=== PATIENT | female | born 1950 | race Caucasian/White ===

== ENCOUNTER 2016-03-12 13:47 | Day surgery (SDC) | payer MEDICARE ==
[~2016-03-12 13:47] MED LIST: DIPHENHYDRAMINE HCL 50 MG/ML VIAL ONE; EPINEPHRINE INJ 1 MG/10 ML DISP.SYRIN ONE; FLUMAZENIL INJ 0.5 MG/5 ML VIAL IV ONE; GLUCAGON,HUMAN RECOMB 1 MG INJ ONE; NALOXONE HCL INJ/PF 0.4 MG/1 ML SDV ONE; ONDANSETRON HCL INJ/PF 4 MG/2 ML SDV ONE; PROMETHAZINE HCL INJ 25 MG/1 ML VIAL ONE
[2016-03-12] MEDS: MIDAZOLAM 2 MG/2 ML INJ ONE ×2 (14:17→14:22)
[2016-03-12] MEDS: FENTANYL CITRATE INJ/PF 100 MCG/2 ML AMPUL ONE ×3 (14:19→14:24)
--- NOTE | 2016-03-12 14:30 | Operative Report ---
Operative Report DATE OF SURGERY: 03/12/16 Operative Report: The risks benefits and alternatives of the procedure explained to the patient in detail and informed consent is obtained that GIF Olympus video scope was inserted into the patient's mouth and hypopharynx the esophagus is identified intubated and insufflated the scope was then advanced through the esophagus stomach and duodenum retroflexion maneuver is done the esophagus stomach and first and second portions of the duodenum examined PREOPERATIVE DIAGNOSIS: Dysphagia POSTOPERATIVE DIAGNOSIS: Hiatal hernia. Schatzki's ring. Gastritis. Esophagitis rule out Augustine's esophagus OPERATION: EGD with biopsy SURGEON: WILIAN FOWLER ANESTHESIA: Moderate Sedation - 4 mg of Versed, 100 g of fentanyl. TISSUE REMOVED OR ALTERED: Gastric specimens status post biopsy rule out Helicobacter pylori. Allergies specimens taken to rule out Augustine's esophagus and to break the Schatzki's ring COMPLICATIONS: None. ESTIMATED BLOOD LOSS: none. INTRAOPERATIVE FINDINGS: As noted above. First and second portions of the duodenum normal PROCEDURE: Patient tolerated the procedure well. No immediate postprocedure complications are noted. Patient is discharged in good condition. Discharge date 03/12/2016. Discharge diet: Regular. Discharge activity: Regular. Patient does have a 2-3 week follow-up to discuss findings. We'll await on biopsies. Patient is instructed to go to emergency room or call the office should there be any further problems or questions.
[2016-03-12 15:39] VITALS: BP 121/78
== END 2016-03-12 15:35 | disposition home or self-care (01) ==
LOC: END 13:47
PROVIDERS: ATTEND Internal Medicine Gastroenterology
PROC: 0DB48ZX Excision of Esophagogastric Junction, Via Natural or Artificial Opening Endoscopic, Diagnostic (ICD-10-PCS; 2016-03-12)
PROC: 0DB68ZX Excision of Stomach, Via Natural or Artificial Opening Endoscopic, Diagnostic (ICD-10-PCS; principal; 2016-03-12 14:00)
DX: K22.2 Esophageal obstruction (principal); K44.9 Diaphragmatic hernia without obstruction or gangrene; K29.50 Unspecified chronic gastritis without bleeding; K20.9 Esophagitis, unspecified; I10 Essential (primary) hypertension; Z72.0 Tobacco use; Z79.899 Other long term (current) drug therapy
CPT/HCPCS: 43239; 88342 ×2; 88305 ×2; 88312 ×2; J2250; J0171; J3010; J1200; J1610; J2310; J2405; J2550; J3490

== ENCOUNTER 2016-06-22 08:50 | Inpatient (IN) | payer MEDICARE ==
--- NOTE | 2016-06-22 08:56 | ER Document Report ---
ED General - General Mode of Arrival: Medic Information source: Relative - Daughter, Emergency Med Personnel TRAVEL OUTSIDE OF THE [place] IN LAST 30 DAYS: No - HPI Patient complains to provider of: Altered Mental Status Onset: This morning Onset/Duration: Persistent <RAJI MAHER - Last Filed: 06/22/16 09:16> <LEIDA GALINDO - Last Filed: 06/22/16 12:36> - General Chief Complaint: Altered Mental Status Stated Complaint: ALTERED MENTAL STATUS Notes: Patient is a 65-year-old female presenting to the emergency department via EMS after she was found outside on her porch this morning by a neighbor slumped over and confused. Per daughter, patient did not recognize herself or any other people. EMS states that the patient's pupils were constricted and nonreactive. Patient was last known normal at 10 PM per daughter. Patient has sulfa and penicillin allergies. (RAJI MAHER) Patient was last seen normal at 10 PM last night. She has no focal deficits and only has confusion. She is not a TPA candidate. (LEIDA GALINDO) - Related Data Allergies/Adverse Reactions: Sulfa (Sulfonamide Antibiotics) Allergy (Intermediate, Verified 06/22/16 11:50) HIGH FEVER Penicillins Allergy (Verified 06/22/16 11:50) Tetracyclines Allergy (Verified 06/22/16 11:50) "PT STATES IT DOES NOT WORK FOR HER" Past Medical History - General Information source: Relative - Daughter, Emergency Med Personnel, [facility] Records - Social History Smoking Status: Current Every Day Smoker Family History: Reviewed & Not Pertinent - Past Medical History Cardiac Medical History: Reports: Hx Hypertension GI Medical History: Reports: Hx Endoscopy Past Surgical History: Reports: Hx Cholecystectomy, Hx Hysterectomy - Immunizations Hx Diphtheria, Pertussis, Tetanus Vaccination: No <RAJI MAHER - Last Filed: 06/22/16 09:16> Review of Systems - Review of Systems -: Yes ROS unobtainable due to patient's medical condition - Patient has altered mental status <RAJI MAHER - Last Filed: 06/22/16 09:16> Physical Exam - General General appearance: Lethargic - Feet very dirty and looks to be chronic from walking outside barefoot often. Nails quite long. - HEENT Head: Normocephalic, Atraumatic Eyes: Normal Pupils: Fixed - Small, slightly reactive Neck: No: Carotid bruit - Respiratory Respiratory status: No respiratory distress Chest status: Nontender Breath sounds: Normal Chest palpation: Normal - Cardiovascular Rhythm: Regular Heart sounds: Normal auscultation Murmur: No - Abdominal Inspection: Normal Tenderness: Nontender - Back Back: Normal, Nontender - Extremities General upper extremity: Normal inspection, Nontender General lower extremity: Normal inspection, Nontender - Neurological Cognition: Confused Orientation: Disoriented to person, Disoriented to place, Disoriented to time, Disoriented to events [place] Coma Scale Eye Opening: None [place] Coma Scale Verbal: Confused [place] Coma Scale Motor: Withdraws to Pain [place] Coma Scale Total: 9 Babinski reflex: Normal (flexor plantar) - Skin Skin Temperature: Warm Skin Moisture: Dry <RAJI MAHER - Last Filed: 06/22/16 09:16> Course <RAJI MAHER - Last Filed: 06/22/16 09:16> - Laboratory Result Diagrams: 06/22/16 09:10 06/22/16 09:10 - Diagnostic Test Radiology reviewed: Image reviewed, Reports reviewed - Chest x-ray does not show acute process. Head CT has some motion but there is no acute process noted. - EKG Interpretation by Me EKG shows normal: Sinus rhythm, [place], ST-T Waves. abnormal: Intervals - Borderline prolonged QT interval, QRS Complexes - Borderline inferior Q waves Rate: Normal - 86 Rhythm: NSR When compared to previous EKG there are: No significant change - Consults Dr. Campos Time consulted: 11:55 Consulted provider: will come to ER <LEIDA GALINDO - Last Filed: 06/22/16 12:36> - Re-evaluation Re-evalutation: 06/22/16 11:06 At this time the patient is much more alert, she does not know where she is but wants to argue about that. She does recognize a relative standing next to her. She keeps saying to "go away" and gets quite perturbed when pressed for answers. (LEIDA GALINDO) - Vital Signs Vital signs: Temp Pulse Resp BP Pulse Ox 98.3 F 91 20 185/109 H 99 06/22/16 09:00 06/22/16 12:00 06/22/16 12:00 06/22/16 12:00 06/22/16 12:00 - Laboratory Laboratory results interpreted by me: 06/22/16 06/22/16 06/22/16 09:10 09:10 09:24 MCHC 36.1 H Seg Neutrophils % 86.6 H Lymphocytes % 8.3 L ABG pH ABG pO2 ABG HCO3 ABG Total CO2 Sodium 123.4 L Potassium 3.5 L Chloride 84 L Glucose 140 H POC Glucose 136 H AST 40 H Alkaline Phosphatase 134 H Urine Ketones Urine Blood 06/22/16 06/22/16 10:23 11:22 MCHC Seg Neutrophils % Lymphocytes % ABG pH 7.49 H ABG pO2 69.3 L ABG HCO3 26.1 H ABG Total CO2 27.2 H Sodium Potassium Chloride Glucose POC Glucose AST Alkaline Phosphatase Urine Ketones TRACE H Urine Blood MODERATE H Discharge <RAJI MAHER - Last Filed: 06/22/16 09:16> - Discharge Admitting Provider: Hospitalist Unit Admitted: Telemetry <LEIDA GALINDO - Last Filed: 06/22/16 12:36> - Discharge Clinical Impression: Acute confusion, Encephalopathy, Hyponatremia COPD (chronic obstructive pulmonary disease) Qualifiers: COPD type: chronic bronchitis Chronic bronchitis type: unspecified Qualified Code(s): J42 - Unspecified chronic bronchitis Condition: Stable Disposition: ADMITTED INPATIENT Scribe Attestation: 06/22/16 12:36 I personally performed the services described in the documentation, reviewed and edited the documentation which was dictated to the scribe in my presence, and it accurately records my words and actions. (LEIDA GALINDO) Scribe Documentation - Scribe Written by Scribe:: Raji Maher 06/22/2016 [id number] acting as scribe for :: Verónica <RAJI MAHER - Last Filed: 06/22/16 09:16>
[2016-06-22 09:29] LABS: ABSOLUTE LYMPHOCYTES (AUTO) 0.7 10^3/uL (0.5-4.7); ABSOLUTE MONOCYTES (AUTO) 0.4 10^3/uL (0.1-1.4); BASOPHILS % (AUTO) 0.2 % (0-2); EOSINOPHILS % (AUTO) 0.1 % (0-6); HEMATOCRIT 38.7 % (36.0-47.0); HGB HCT DIFFERENCE 3.3; LYMPHOCYTES % (AUTO) 8.3 % (13-45); MEAN CORPUSCULAR HEMOGLOBIN 30.7 pg (27.0-33.4); MEAN CORPUSCULAR HGB CONC 36.1 g/dL (32.0-36.0); MEAN CORPUSCULAR VOLUME 85 fl (80-97); MONOCYTES % (AUTO) 4.8 % (3-13); RED BLOOD COUNT 4.56 10^6/uL (3.72-5.28); RED CELL DISTRIBUTION WIDTH 12.7 % (11.5-14.0); SEGMENTED NEUTROPHILS % (AUTO) 86.6 % (42-78); WHITE BLOOD COUNT 8.1 10^3/uL (4.0-10.5)
[2016-06-22 10:05] LABS: ALANINE AMINOTRANSFERASE 23 U/L (9-52); ALBUMIN 4.6 g/dL (3.5-5.0); ALKALINE PHOSPHATASE 134 U/L (38-126); ANION GAP 14 (5-19); ASPARTATE AMINO TRANSFERASE 40 U/L (14-36); BILIRUBIN,DIRECT 0.3 mg/dL (0.0-0.4); BILIRUBIN,TOTAL 1.1 mg/dL (0.2-1.3); BLOOD UREA NITROGEN 20 mg/dL (7-20); CALCIUM 9.7 mg/dL (8.4-10.2); CARBON DIOXIDE 25 mmol/L (22-30); CHLORIDE 84 mmol/L (98-107); CREATININE RESULT 0.74 mg/dL (0.52-1.25); GLUCOSE 140 mg/dL (75-110); POTASSIUM 3.5 mmol/L (3.6-5.0); SODIUM 123.4 mmol/L (137-145)
[2016-06-22 10:06] LABS: CREATINE KINASE 75 U/L (30-135); MAGNESIUM 1.6 mg/dL (1.6-2.3); TOTAL PROTEIN 8.1 g/dL (6.3-8.2)
[2016-06-22 10:21] LABS: CREATINE KINASE MB 0.78 ng/mL (<4.55)
[2016-06-22 10:23] LABS: TROPONIN I 0.055 ng/mL
--- NOTE | 2016-06-22 10:46 | EKG REPORT ---
SEVERITY:- BORDERLINE ECG - SINUS RHYTHM BORDERLINE INFERIOR Q WAVES BORDERLINE PROLONGED QT INTERVAL : Confirmed by: Sammy Hendrickson 22-Jun-2016 10:46:23
[2016-06-22 10:50] LABS: APPEARANCE,URINE CLEAR; BILIRUBIN,URINE NEGATIVE (NEGATIVE); GLUCOSE, URINE NEGATIVE (NEGATIVE); KETONES,URINE TRACE mg/dL (NEGATIVE); LEUKOCYTE ESTERASE,URINE NEGATIVE (NEGATIVE); NITRITE,URINE NEGATIVE (NEGATIVE); PROTEIN,URINE NEGATIVE (NEGATIVE); UROBILINOGEN,URINE NEGATIVE mg/dL (<2.0)
[2016-06-22 11:32] LABS: ARTERIAL BLOOD O2 SATURATION 95.2 % (94-98)
[2016-06-22] MEDS ORDERED: IPRATROPIUM/ALBUTEROL 0.5-2.5 MG/3 ML AMPUL NEB ONE (11:48)
[2016-06-22] MEDS ORDERED: NORMAL SALINE 1000 ML 1,000 ML IV ONE (11:59)
[2016-06-22 12:48] LABS: URINE BARBITURATES SCREEN NEGATIVE; URINE METHADONE SCREEN NEGATIVE; URINE OPIATES LOW NEGATIVE; URINE PHENCYCLIDINE SCREEN NEGATIVE
[2016-06-22] MEDS ORDERED: ONDANSETRON HCL INJ/PF 4 MG/2 ML SDV IV PRN (13:42)
[2016-06-22] MEDS ORDERED: LABETALOL HCL INJ 20 MG/4 ML DISP.SYRIN IV PRN (13:49)
[2016-06-22] MEDS ORDERED: HALOPERIDOL LACTATE INJ 5 MG/1 ML VIAL IV PRN (13:51)
[2016-06-22] MEDS ORDERED: LORAZEPAM INJ 2 MG/1 ML VIAL IV PRN (13:52)
[2016-06-22] MEDS: MORPHINE SULFATE 10 MG/ML INJ IV PRN ×2 (14:58→18:50)
--- NOTE | 2016-06-22 16:03 | PDOC H&P ---
History of Present Illness Admission Date/PCP: 06/22/16 13:26 History of Present Illness: ISIS LYNCH is a 65 year old white female with a past medical history significant for hypertension chronic back pain, and tobacco abuse, who presents to the service with confusion. Patient was last seen sometime between 10 and 11 PM last night. Her family states that at this time she was normal. A neighbor of theirs was putting their children on the school bus this morning at around 7 AM when they noticed the patient sitting the her bottom step of her porch. She seemed to be slumped over. Her daughter who lives down the street was notified and came to see about her. She found her mother slumped over and confused. According to the daughter her mother is normally talkative and slightly forgetful. She has never seen her like this before. She reports that a few days prior to this she was complaining of nausea without vomiting abdominal pain and back pain. Apparently her back pain is quite chronic from childhood. There seems to be a fracture there which she was taking 7.5 mg of Percocet. Unfortunately these medications were discontinued by her primary care physician until she could provide her records from her previous doctor in [place]. She has only been living down here for the last year. Her daughter did notice that she complained of any fevers or chills. According to her the patient smokes about 2 packs per day and has been doing this since teenage kaufman. The patient was brought into the emergency room there she had basic lab work done and was found to have a sodium of 123. Chest x-ray was done which was normal. CT of the head was also done which did not show any acute infarct. The patient was given some IV fluids. Past Medical History Cardiac Medical History: Reports: Hyperlipidema, Hypertension Denies: Coronary Artery Disease, Myocardial Infarction Pulmonary Medical History: Denies: Asthma, Bronchitis, Chronic Obstructive Pulmonary Disease (COPD), Pneumonia Neurological Medical History: Denies: Hemorrhagic CVA, Ischemic CVA, Seizures GI Medical History: Reports: Other - Augustine's esophagus. Difficulty swallowing. Musculoskeltal Medical History: Reports: Arthritis Musculoskeletal History Note: Chronic back pain. With "fracture" Hematology: Denies: Anemia Past Surgical History Past Surgical History: Reports: Cholecystectomy, Hysterectomy Social History Information Source: Relative - Her daughter provides all information for this interview. Smoking Status: Current Every Day Smoker Cigarettes Packs Per Day: 2 - patient has been doing this since she was "young" Frequency of Alcohol Use: None Drugs: None Family History Family History: Patient is uncooperative and does not supply any of her own medical history. Her daughter who was with her does not know any family history. Therefore family history is unobtainable. Parental Family History Reviewed: No - unknown/not able to be obtained Children Family History Reviewed: No Sibling(s) Family History Reviewed.: No Medication/Allergy Home Medications: Atorvastatin Calcium [Lipitor 40 mg Tablet] 40 mg PO DAILY 06/22/16 Cyclobenzaprine HCl [Flexeril 5 mg Tablet] 5 mg PO BIDP PRN 06/22/16 Hydrochlorothiazide 25 mg PO DAILY 06/22/16 Lisinopril [Prinivil] 20 mg PO Q12 06/22/16 Metoprolol Succinate [Toprol Xl 50 mg Tab.sr] 50 mg PO DAILY 06/22/16 Allergies/Adverse Reactions: Sulfa (Sulfonamide Antibiotics) Allergy (Intermediate, Verified 06/22/16 11:50) HIGH FEVER Penicillins Allergy (Verified 06/22/16 11:50) Tetracyclines Allergy (Verified 06/22/16 11:50) "PT STATES IT DOES NOT WORK FOR HER" Review of Systems Review of Systems: Review of systems is unobtainable from the patient. However the daughter denies fevers chills constipation lightheadedness dizziness patient's behalf. To the best of her knowledge, the patient has not had any of these according to her daughter she lost a significant amount away 2 years ago when she was hospitalized for pancreatitis. Apparently she was hospitalized for 45 days. Since that time she has been a smaller framed woman and has not gained the weight back. Daughter also notes that the patient eats in multiple small meals a day because of the difficulty swallowing and her Augustine's esophagus. No other review of systems is obtainable. Please see history of present illness for any further details on review of systems. Physical Exam Vital Signs: Temp Pulse Resp BP Pulse Ox 98.3 F 91 13 173/112 H 100 06/22/16 09:00 06/22/16 12:00 06/22/16 14:01 06/22/16 14:01 06/22/16 14:01 PHYSICAL EXAM: GENERAL: This is a well-developed well-nourished elderly white female resting in bed appearing in pain. HEENT: Normocephalic atraumatic. Sclera and icteric. Trachea is midline. Dentition is poor. The patient has several teeth that are missing. Moist mucous membranes. HEART: Regular rate and rhythm. No murmurs rubs or gallops. LUNGS: Clear to auscultation anteriorly bilaterally with equal rise and fall of the chest. ABDOMEN: Soft, nontender, nondistended with normoactive bowel sounds EXTREMITIES: No clubbing cyanosis or edema. 2+ peripheral pulses. NEURO: Awake, alert, she was not oriented for the emergency room staff. She does not answer questions for me. Nor does she participate in a neurologic assessment. To my conversation with the ER physician, the patient came extremely agitated with not being able to answer basic questions and shooed everyone out of the room. Cranial nerves were not able to be fully assessed as the patient refused to participate with exam. The patient was clutching her back majority of the interview and moaning in pain. When asked what was wrong she did say "my back hurts". The patient would only speak to her 5-month-old great grandson who was in the room. PSYCH: Agitated Results Impressions: Head CT 06/22/16 08:52 IMPRESSION: Very limited negative study Chest X-Ray 06/22/16 08:54 IMPRESSION: There are mild chronic lung changes with no acute cardiopulmonary disease. Assessment & Plan - Diagnosis (1) Encephalopathy Plan: The patient was found to be confused. Detailed the head was negative. Generally I could not do a thorough neurologic assessment. The patient wouldn' t even so much a smile for me on command. Based on her behavior and the report from her family as well as the ER physician, I still have concerns that she could have had an underlying stroke. Therefore, I'm going to order an MRI of the brain. This may present to be difficult considering she is quite agitated. I think if we get her back pain under reasonable control that we could obtain a reliable MRI. (2) COPD (chronic obstructive pulmonary disease) Qualifiers: Qualified Code(s): J42 - Unspecified chronic bronchitis Plan: I don't believe COPD has officially been diagnosed. The patient will likely need outpatient PFTs. Clearly on chest x-ray there is some evidence of this. Patient has a long-term history of smoking most likely she does have COPD. For now we can have when necessary nebulizers on standby. She does not have an acute exacerbation. (3) Hyponatremia Plan: Unclear why the patient is hyponatremic. Her family seems to think that although she consumes several small meals a day that she eats enough. Her sodium is in the 120s and I don't think this can fully account for her confusion. We will continue saline solution at 50 mL an hour and recheck labs in the morning. (4) Chronic back pain Qualifiers: Back pain location: low back pain Back pain laterality: right Plan: According to the daughter the patient has chronic back pain that she says stems from childhood. She states that the patient was told it was something she would have to live with. And that this is a fracture. apparently, in [place] she was on pain medications there. Her PCP here gave her 7.5 mg Percocet. These were discontinued until the patient could supply her records from [place]. For now, the patient is writhing in pain on the stretcher periods of calm this. Because of the nature of her encephalopathy I will order IV morphine when necessary all she is nothing by mouth. We have determined that her swallowing is okay to allow her to have 7.5 mg of Percocet to see if that helps her discomfort. He will need to follow-up with her primary care as an outpatient. (5) Tobacco use disorder, continuous Plan: Smoking cessation is advised however I am unable to residential youth counselor this patient at this time secondary to her encephalopathy. - Time Time Spent: 50 to 70 Minutes - Inpatient Certification Medical Necessity: Need Close Monitoring Due to Risk of Patient Decompensation
[2016-06-22] MEDS ORDERED: IPRATROPIUM/ALBUTEROL 0.5-2.5 MG/3 ML AMPUL NEB PRN (16:05)
[2016-06-22] MEDS: NORMAL SALINE 1000 ML 1,000 ML IV PRN (17:31)
[2016-06-22] MEDS: OXYCODONE-ACETAMINOPHEN 5-325 MG TABLET PO PRN (20:18)
[2016-06-23] MEDS: MORPHINE SULFATE 10 MG/ML INJ IV PRN ×2 (04:55→09:43)
[2016-06-23 06:56] LABS: HEMATOCRIT 33.7 % (36.0-47.0); HEMOGLOBIN 12.3 g/dL (12.0-15.5); HGB HCT DIFFERENCE 3.2; MEAN CORPUSCULAR HEMOGLOBIN 30.9 pg (27.0-33.4); MEAN CORPUSCULAR HGB CONC 36.6 g/dL (32.0-36.0); MEAN CORPUSCULAR VOLUME 84 fl (80-97); RED CELL DISTRIBUTION WIDTH 12.9 % (11.5-14.0); WHITE BLOOD COUNT 6.9 10^3/uL (4.0-10.5)
[2016-06-23 07:07] LABS: ANION GAP 11 (5-19); BLOOD UREA NITROGEN 15 mg/dL (7-20); CALCIUM 9.2 mg/dL (8.4-10.2); CARBON DIOXIDE 25 mmol/L (22-30); CHLORIDE 91 mmol/L (98-107); CREATININE RESULT 0.77 mg/dL (0.52-1.25); GLUCOSE 95 mg/dL (75-110); MAGNESIUM 1.6 mg/dL (1.6-2.3); POTASSIUM 3.3 mmol/L (3.6-5.0); SODIUM 127.3 mmol/L (137-145)
[2016-06-23] MEDS: NORMAL SALINE 1000 ML 1,000 ML IV PRN ×2 (09:44→21:02)
--- NOTE | 2016-06-23 12:10 | PDOC PROGRESS REPORT ---
Subjective Progress Note for:: 06/23/16 Subjective:: Patient is doing well She is complaining of dysphagia for solids and heartburn Patient did have endoscopy by Dr. Green in March 2016 and was diagnosed of Schatzki's ring and esophagitis Patient did not want any follow-up intervention and does not wish to have follow -up endoscopies She states that her intake has been very poor because of the dysphagia Physical Exam Vital Signs: Temp Pulse Resp BP Pulse Ox 98.7 F 97 18 102/66 95 06/23/16 11:05 06/23/16 11:05 06/23/16 11:05 06/23/16 11:05 06/23/16 11:05 Intake & Output 06/22/16 06/23/16 06/24/16 00:59 00:59 00:59 Intake Total 50 600 Output Total 2700 200 Balance -2650 400 Weight 72.58 kg General appearance: PRESENT: no acute distress, thin, other - She looks chronically ill Head exam: PRESENT: atraumatic, normocephalic Eye exam: PRESENT: conjunctiva pink, EOMI, PERRLA. ABSENT: scleral icterus Ear exam: PRESENT: normal external ear exam Mouth exam: PRESENT: moist, tongue midline Neck exam: ABSENT: carotid bruit, JVD, lymphadenopathy, thyromegaly Respiratory exam: PRESENT: clear to auscultation sunil. ABSENT: rales, rhonchi, wheezes Cardiovascular exam: PRESENT: RRR. ABSENT: diastolic murmur, rubs, systolic murmur Pulses: PRESENT: normal dorsalis pedis pul Vascular exam: PRESENT: normal capillary refill GI/Abdominal exam: PRESENT: normal bowel sounds, soft. ABSENT: distended, guarding, mass, organolmegaly, rebound, tenderness Rectal exam: PRESENT: deferred Extremities exam: PRESENT: full ROM. ABSENT: calf tenderness, clubbing, pedal edema Neurological exam: PRESENT: alert, awake, oriented to person, oriented to place , oriented to time, oriented to situation, CN II-XII grossly intact. ABSENT: motor sensory deficit Psychiatric exam: PRESENT: appropriate affect, normal mood. ABSENT: homicidal ideation, suicidal ideation Skin exam: PRESENT: dry, intact, warm. ABSENT: cyanosis, rash Results Laboratory Results: 06/23/16 06:25 06/23/16 06:25 06/23/16 06/23/16 06:25 06:25 WBC 6.9 RBC 4.00 Hgb 12.3 Hct 33.7 L MCV 84 MCH 30.9 MCHC 36.6 H RDW 12.9 Plt Count 176 Sodium 127.3 L Potassium 3.3 L Chloride 91 L Carbon Dioxide 25 Anion Gap 11 BUN 15 Creatinine 0.77 Est GFR ( Amer) > 60 Est GFR (Non-Af Amer) > 60 Glucose 95 Calcium 9.2 Magnesium 1.6 Impressions: Head MRI 06/22/16 00:00 IMPRESSION: MINIMAL MICROVASCULAR ISCHEMIC CHANGE. OTHERWISE NORMAL STUDY. Head CT 06/22/16 08:52 IMPRESSION: Very limited negative study Chest X-Ray 06/22/16 08:54 IMPRESSION: There are mild chronic lung changes with no acute cardiopulmonary disease. Assessment & Plan - Diagnosis (1) Dysphagia Is this a current diagnosis for this admission?: YesPlan: Likely to be secondary to Schatzki's ring We will give her modified diet and encourage Ensure (2) Esophagitis Is this a current diagnosis for this admission?: YesPlan: We will treat with Protonix and Carafate (3) Chronic back pain Qualifiers: Back pain location: low back pain Back pain laterality: right Is this a current diagnosis for this admission?: YesPlan: Patient is chronically on medications for back pain She has been prescribed morphine since yesterday We will discontinue morphine as it may contribute to altered mentation and reevaluate her pain regimen (4) Encephalopathy Is this a current diagnosis for this admission?: YesPlan: Has resolved patient's mentation is excellent (5) Hyponatremia Is this a current diagnosis for this admission?: YesPlan: Likely to be secondary to poor intake We will continue IV normal saline actually increase the rate 125 mL/h We'll repeat BMP in a.m. - Time Time Spent with patient: Repeat a BMP in a.m. Patient may be discharged in a.m. if clinically improved ; we will have PT evaluation Time Spent with patient: 25-34 minutes
[2016-06-23] MEDS ORDERED: OXYCODONE-ACETAMINOPHEN 5-325 MG TABLET PO PRN (12:13)
[2016-06-23] MEDS: OXYCODONE-ACETAMINOPHEN 5-325 MG TABLET PO PRN (12:13)
[2016-06-23] MEDS ORDERED: IBUPROFEN 600 MG TABLET PO PRN (12:24)
[2016-06-23] MEDS ORDERED: SUCRALFATE SUSP 1 GM/10 ML UDCUP PO ONE (13:00)
[2016-06-23] MEDS ORDERED: METOPROLOL SUCCINATE 50 MG TAB.SR.24H PO ONE (13:00)
[2016-06-23] MEDS ORDERED: PANTOPRAZOLE SODIUM 40 MG VIAL IV ONE (13:00)
[2016-06-23] MEDS: TRAMADOL HCL 50 MG TABLET PO PRN ×2 (13:43→19:51)
[2016-06-23] MEDS: SUCRALFATE SUSP 1 GM/10 ML UDCUP PO SCH ×2 (16:06→21:06)
[2016-06-23] MEDS: PANTOPRAZOLE SODIUM 40 MG VIAL IV SCH (21:02)
[2016-06-24] MEDS: TRAMADOL HCL 50 MG TABLET PO PRN ×4 (03:05→21:37)
[2016-06-24] MEDS: NORMAL SALINE 1000 ML 1,000 ML IV PRN (05:01)
[2016-06-24] MEDS: METOPROLOL SUCCINATE 50 MG TAB.SR.24H PO SCH (08:04)
[2016-06-24] MEDS: SUCRALFATE SUSP 1 GM/10 ML UDCUP PO SCH ×4 (08:05→21:34)
[2016-06-24] MEDS: PANTOPRAZOLE SODIUM 40 MG VIAL IV SCH ×2 (09:16→21:33)
[2016-06-24 16:44] LABS: ANION GAP 10 (5-19); BLOOD UREA NITROGEN 14 mg/dL (7-20); CALCIUM 8.5 mg/dL (8.4-10.2); CARBON DIOXIDE 24 mmol/L (22-30); CHLORIDE 99 mmol/L (98-107); CREATININE RESULT 0.78 mg/dL (0.52-1.25); GLUCOSE 100 mg/dL (75-110); POTASSIUM 3.3 mmol/L (3.6-5.0); SODIUM 133.2 mmol/L (137-145)
[2016-06-24] MEDS ORDERED: POTASSIUM CHLORIDE 20 MEQ/15 ML UDCUP PO ONE (18:45)
[2016-06-24] MEDS: LISINOPRIL 10 MG TABLET PO SCH (21:32)
[2016-06-24] MEDS ORDERED: (PENDING PHARMACY ID) (Lisinopril [Prinivil] 20 MG) PO SCH (22:00)
[2016-06-25] MEDS ORDERED: AMLODIPINE BESYLATE 10 MG TABLET PO ONE (00:18)
[2016-06-25] MEDS: TRAMADOL HCL 50 MG TABLET PO PRN ×2 (03:57→11:41)
[2016-06-25 05:34] LABS: ANION GAP 11 (5-19); BLOOD UREA NITROGEN 9 mg/dL (7-20); CARBON DIOXIDE 25 mmol/L (22-30); CHLORIDE 98 mmol/L (98-107); CREATININE RESULT 0.66 mg/dL (0.52-1.25); GLUCOSE 112 mg/dL (75-110); MAGNESIUM 1.3 mg/dL (1.6-2.3); POTASSIUM 3.4 mmol/L (3.6-5.0); SODIUM 133.7 mmol/L (137-145)
--- NOTE | 2016-06-25 07:29 | PDOC PROGRESS REPORT ---
Subjective Progress Note for:: 06/24/16 Subjective:: Patient states she's feeling well and wishes to go home She has not ambulated yet usually lives in assisted living Sodium is improved, magnesium still low Physical Exam Vital Signs: Temp Pulse Resp BP Pulse Ox 97.9 F 75 16 147/79 H 98 06/25/16 03:35 06/25/16 03:35 06/25/16 03:35 06/25/16 03:35 06/25/16 03:35 Intake & Output 06/24/16 06/25/16 06/26/16 00:59 00:59 00:59 Intake Total 1872 4548 531 Output Total 800 2100 Balance 1072 2448 531 Weight 73.9 kg 73.8 kg General appearance: PRESENT: no acute distress, well-developed, well-nourished Head exam: PRESENT: atraumatic, normocephalic Eye exam: PRESENT: conjunctiva pink, EOMI, PERRLA. ABSENT: scleral icterus Ear exam: PRESENT: normal external ear exam Mouth exam: PRESENT: moist, tongue midline Neck exam: ABSENT: carotid bruit, JVD, lymphadenopathy, thyromegaly Respiratory exam: PRESENT: clear to auscultation sunil. ABSENT: rales, rhonchi, wheezes Cardiovascular exam: PRESENT: RRR. ABSENT: diastolic murmur, rubs, systolic murmur Pulses: PRESENT: normal dorsalis pedis pul Vascular exam: PRESENT: normal capillary refill GI/Abdominal exam: PRESENT: normal bowel sounds, soft. ABSENT: distended, guarding, mass, organolmegaly, rebound, tenderness Rectal exam: PRESENT: deferred Extremities exam: PRESENT: full ROM. ABSENT: calf tenderness, clubbing, pedal edema Neurological exam: PRESENT: alert, awake, oriented to person, oriented to place , oriented to time, oriented to situation, CN II-XII grossly intact. ABSENT: motor sensory deficit Psychiatric exam: PRESENT: appropriate affect, normal mood. ABSENT: homicidal ideation, suicidal ideation Skin exam: PRESENT: dry, intact, warm. ABSENT: cyanosis, rash Results Laboratory Results: 06/25/16 04:50 06/24/16 06/25/16 16:21 04:50 Sodium 133.2 L 133.7 L Potassium 3.3 L 3.4 L Chloride 99 98 Carbon Dioxide 24 25 Anion Gap 10 11 BUN 14 9 Creatinine 0.78 0.66 Est GFR ( Amer) > 60 > 60 Est GFR (Non-Af Amer) > 60 > 60 Glucose 100 112 H Calcium 8.5 9.0 Magnesium 1.3 L Impressions: Head MRI 06/22/16 00:00 IMPRESSION: MINIMAL MICROVASCULAR ISCHEMIC CHANGE. OTHERWISE NORMAL STUDY. Head CT 06/22/16 08:52 IMPRESSION: Very limited negative study Chest X-Ray 06/22/16 08:54 IMPRESSION: There are mild chronic lung changes with no acute cardiopulmonary disease. Assessment & Plan - Diagnosis (1) Dysphagia Is this a current diagnosis for this admission?: Yes (2) Esophagitis Is this a current diagnosis for this admission?: Yes (3) Chronic back pain Qualifiers: Back pain location: low back pain Back pain laterality: right Is this a current diagnosis for this admission?: Yes (4) Encephalopathy Is this a current diagnosis for this admission?: Yes (5) Hyponatremia Is this a current diagnosis for this admission?: Yes - Time Time Spent with patient: We will continue to hydrate the patient ; replace magnesium PT evaluation in a.m. Likely discharge back to assisted living in a.m. Time Spent with patient: 25-34 minutes
[2016-06-25] MEDS: MAGNESIUM SULFATE/D5W 100 ML IV SCH ×2 (08:34→09:39)
[2016-06-25] MEDS: SUCRALFATE SUSP 1 GM/10 ML UDCUP PO SCH ×2 (08:34→10:49)
[2016-06-25] MEDS: METOPROLOL SUCCINATE 50 MG TAB.SR.24H PO SCH (08:34)
[2016-06-25] MEDS: LISINOPRIL 10 MG TABLET PO SCH (09:34)
[2016-06-25] MEDS: PANTOPRAZOLE SODIUM 40 MG VIAL IV SCH (09:34)
[2016-06-25] MEDS ORDERED: ATORVASTATIN CALCIUM 40 MG TABLET PO SCH (10:00)
[2016-06-25] MEDS ORDERED: MAGNESIUM OXIDE 400 MG TABLET PO ONE (11:30)
[2016-06-25 11:35] VITALS: BP 146/73
--- NOTE | 2016-06-25 11:50 | PDOC DISCHARGE SUMMARY ---
General - Admit/Disc Date/PCP Admission Date/Primary Care Provider: 06/23/16 10:53 Discharge Date: 06/25/16 - Discharge Diagnosis (1) Dysphagia Is this a current diagnosis for this admission?: YesSummary: Patient was diagnosed in the past of esophagitis and Schatzki's ring She described persistent dysphagia for solids Patient did not want to be seen by [facility]; and stated she would not go through another endoscopy She was treated with Carafate and Protonix and did well She was kept on mechanical soft diet (2) Esophagitis Is this a current diagnosis for this admission?: Yes (3) Chronic back pain Is this a current diagnosis for this admission?: Yes (4) Encephalopathy Is this a current diagnosis for this admission?: YesSummary: On admission likely to be secondary to hyponatremia Resolved (5) Hyponatremia Is this a current diagnosis for this admission?: YesSummary: Secondary to poor intake Improved with saline infusion At discharge the sodium is 133 (6) Electrolyte imbalance Is this a current diagnosis for this admission?: YesSummary: Mild hypokalemia and hypomagnesemia are persistent at discharge Patient was discharged with K and mag supplements - Additional Information Discharge Activity: Activity As Tolerated Home Medications: Atorvastatin Calcium [Lipitor 40 mg Tablet] 40 mg PO DAILY 06/22/16 Lisinopril [Prinivil] 20 mg PO Q12 06/22/16 Metoprolol Succinate [Toprol Xl 50 mg Tab.sr] 50 mg PO DAILY 06/22/16 Magnesium Oxide 400 mg PO BID #20 tablet 06/25/16 Pantoprazole Sodium [Protonix] 40 mg PO QHS #30 suspdr.pkt 06/25/16 Pot Chloride/Pot Bicarb/Cit AC [K-Lyte-Cl 25 Meq Tablet Eff] 25 meq PO DAILY # 10 tablet.eff 06/25/16 Sucralfate [Carafate Susp 1 gm/10 ml Udcup] 1 gm PO ACHS #400 ml 06/25/16 History of Present Illness Patient complains of: Confusion hyponatremia History of Present Illness: ISIS LYNCH is a 65 year old female with a past medical history significant for hypertension chronic back pain, and tobacco abuse, who presents to the service with confusion. Patient was last seen sometime between 10 and 11 PM last night. Her family states that at this time she was normal. A neighbor of theirs was putting their children on the school bus this morning at around 7 AM when they noticed the patient sitting the her bottom step of her porch. She seemed to be slumped over. Her daughter who lives down the street was notified and came to see about her. She found her mother slumped over and confused. According to the daughter her mother is normally talkative and slightly forgetful. She has never seen her like this before. She reports that a few days prior to this she was complaining of nausea without vomiting abdominal pain and back pain. Apparently her back pain is quite chronic from childhood. There seems to be a fracture there which she was taking 7.5 mg of Percocet. Unfortunately these medications were discontinued by her primary care physician until she could provide her records from her previous doctor in [place]. She has only been living down here for the last year. Her daughter did notice that she complained of any fevers or chills. According to her the patient smokes about 2 packs per day and has been doing this since teenage kaufman. The patient was brought into the emergency room there she had basic lab work done and was found to have a sodium of 123. Chest x-ray was done which was normal. CT of the head was also done which did not show any acute infarct. The patient was given some IV fluids. Hospital Course Hospital Course: See above Physical Exam Vital Signs: Temp Pulse Resp BP Pulse Ox 98.2 F 82 18 146/73 H 97 06/25/16 11:31 06/25/16 11:31 06/25/16 11:31 06/25/16 11:31 06/25/16 11:31 Intake & Output 06/24/16 06/25/16 06/26/16 00:59 00:59 00:59 Intake Total 1872 4548 531 Output Total 800 2100 Balance 1072 2448 531 Weight 73.9 kg 73.8 kg General appearance: PRESENT: no acute distress, well-developed, well-nourished Head exam: PRESENT: atraumatic, normocephalic Eye exam: PRESENT: conjunctiva pink, EOMI, PERRLA. ABSENT: scleral icterus Ear exam: PRESENT: normal external ear exam Mouth exam: PRESENT: moist, tongue midline Neck exam: ABSENT: carotid bruit, JVD, lymphadenopathy, thyromegaly Respiratory exam: PRESENT: clear to auscultation sunil. ABSENT: rales, rhonchi, wheezes Cardiovascular exam: PRESENT: RRR. ABSENT: diastolic murmur, rubs, systolic murmur Pulses: PRESENT: normal dorsalis pedis pul Vascular exam: PRESENT: normal capillary refill GI/Abdominal exam: PRESENT: normal bowel sounds, soft. ABSENT: distended, guarding, mass, organolmegaly, rebound, tenderness Rectal exam: PRESENT: deferred Extremities exam: PRESENT: full ROM. ABSENT: calf tenderness, clubbing, pedal edema Neurological exam: PRESENT: alert, awake, CN II-XII grossly intact. ABSENT: motor sensory deficit Psychiatric exam: PRESENT: appropriate affect, normal mood Skin exam: PRESENT: dry, intact, warm. ABSENT: cyanosis, rash Results Laboratory Results: 06/25/16 04:50 06/24/16 06/25/16 16:21 04:50 Sodium 133.2 L 133.7 L Potassium 3.3 L 3.4 L Chloride 99 98 Carbon Dioxide 24 25 Anion Gap 10 11 BUN 14 9 Creatinine 0.78 0.66 Est GFR ( Amer) > 60 > 60 Est GFR (Non-Af Amer) > 60 > 60 Glucose 100 112 H Calcium 8.5 9.0 Magnesium 1.3 L Labs- Entire Visit 06/22/16 06/22/16 06/22/16 09:10 09:10 09:10 WBC 8.1 RBC 4.56 Hgb 14.0 Hct 38.7 MCV 85 MCH 30.7 MCHC 36.1 H RDW 12.7 Plt Count 227 Seg Neutrophils % 86.6 H Lymphocytes % 8.3 L Monocytes % 4.8 Eosinophils % 0.1 Basophils % 0.2 Absolute Neutrophils 7.0 Absolute Lymphocytes 0.7 Absolute Monocytes 0.4 Absolute Eosinophils 0.0 Absolute Basophils 0.0 Carbonic Acid HCO3/H2CO3 Ratio ABG pH ABG pCO2 ABG pO2 ABG HCO3 ABG Total CO2 ABG O2 Saturation ABG Base Excess FiO2 Sodium 123.4 L Potassium 3.5 L Chloride 84 L Carbon Dioxide 25 Anion Gap 14 BUN 20 Creatinine 0.74 Est GFR ( Amer) > 60 Est GFR (Non-Af Amer) > 60 Glucose 140 H POC Glucose Calcium 9.7 Magnesium 1.6 Total Bilirubin 1.1 Direct Bilirubin 0.3 Indirect Bilirubin Not Reportable Neonat Total Bilirubin Not Reportable AST 40 H ALT 23 Alkaline Phosphatase 134 H Creatine Kinase 75 CK-MB (CK-2) 0.78 Troponin I 0.055 Total Protein 8.1 Albumin 4.6 Urine Color Urine Appearance Urine pH Ur Specific [place] Urine Protein Urine Glucose (UA) Urine Ketones Urine Blood Urine Nitrite Urine Bilirubin Urine Urobilinogen Ur Leukocyte Esterase Urine WBC (Auto) Urine RBC (Auto) Urine Mucus (Auto) Urine Ascorbic Acid Urine Opiates Screen Urine Methadone Screen Ur Barbiturates Screen Ur Phencyclidine Scrn Ur Amphetamines Screen U Benzodiazepines Scrn Urine Cocaine Screen U Marijuana (THC) Screen 06/22/16 06/22/16 06/22/16 09:24 10:23 10:23 WBC RBC Hgb Hct MCV MCH MCHC RDW Plt Count Seg Neutrophils % Lymphocytes % Monocytes % Eosinophils % Basophils % Absolute Neutrophils Absolute Lymphocytes Absolute Monocytes Absolute Eosinophils Absolute Basophils Carbonic Acid HCO3/H2CO3 Ratio ABG pH ABG pCO2 ABG pO2 ABG HCO3 ABG Total CO2 ABG O2 Saturation ABG Base Excess FiO2 Sodium Potassium Chloride Carbon Dioxide Anion Gap BUN Creatinine Est GFR ( Amer) Est GFR (Non-Af Amer) Glucose POC Glucose 136 H Calcium Magnesium Total Bilirubin Direct Bilirubin Indirect Bilirubin Neonat Total Bilirubin AST ALT Alkaline Phosphatase Creatine Kinase CK-MB (CK-2) Troponin I Total Protein Albumin Urine Color YELLOW Urine Appearance CLEAR Urine pH 7.0 Ur Specific [place] 1.010 Urine Protein NEGATIVE Urine Glucose (UA) NEGATIVE Urine Ketones TRACE H Urine Blood MODERATE H Urine Nitrite NEGATIVE Urine Bilirubin NEGATIVE Urine Urobilinogen NEGATIVE Ur Leukocyte Esterase NEGATIVE Urine WBC (Auto) 1 Urine RBC (Auto) 8 Urine Mucus (Auto) RARE Urine Ascorbic Acid NEGATIVE Urine Opiates Screen NEGATIVE Urine Methadone Screen NEGATIVE Ur Barbiturates Screen NEGATIVE Ur Phencyclidine Scrn NEGATIVE Ur Amphetamines Screen NEGATIVE U Benzodiazepines Scrn NEGATIVE Urine Cocaine Screen NEGATIVE U Marijuana (THC) Screen NEGATIVE 06/22/16 06/23/16 06/23/16 11:22 06:25 06:25 WBC 6.9 RBC 4.00 Hgb 12.3 Hct 33.7 L MCV 84 MCH 30.9 MCHC 36.6 H RDW 12.9 Plt Count 176 Seg Neutrophils % Lymphocytes % Monocytes % Eosinophils % Basophils % Absolute Neutrophils Absolute Lymphocytes Absolute Monocytes Absolute Eosinophils Absolute Basophils Carbonic Acid 1.07 HCO3/H2CO3 Ratio 24:1 ABG pH 7.49 H ABG pCO2 35.4 ABG pO2 69.3 L ABG HCO3 26.1 H ABG Total CO2 27.2 H ABG O2 Saturation 95.2 ABG Base Excess 3.0 FiO2 ROOM AIR Sodium 127.3 L Potassium 3.3 L Chloride 91 L Carbon Dioxide 25 Anion Gap 11 BUN 15 Creatinine 0.77 Est GFR ( Amer) > 60 Est GFR (Non-Af Amer) > 60 Glucose 95 POC Glucose Calcium 9.2 Magnesium 1.6 Total Bilirubin Direct Bilirubin Indirect Bilirubin Neonat Total Bilirubin AST ALT Alkaline Phosphatase Creatine Kinase CK-MB (CK-2) Troponin I Total Protein Albumin Urine Color Urine Appearance Urine pH Ur Specific [place] Urine Protein Urine Glucose (UA) Urine Ketones Urine Blood Urine Nitrite Urine Bilirubin Urine Urobilinogen Ur Leukocyte Esterase Urine WBC (Auto) Urine RBC (Auto) Urine Mucus (Auto) Urine Ascorbic Acid Urine Opiates Screen Urine Methadone Screen Ur Barbiturates Screen Ur Phencyclidine Scrn Ur Amphetamines Screen U Benzodiazepines Scrn Urine Cocaine Screen U Marijuana (THC) Screen 06/24/16 06/25/16 16:21 04:50 WBC RBC Hgb Hct MCV MCH MCHC RDW Plt Count Seg Neutrophils % Lymphocytes % Monocytes % Eosinophils % Basophils % Absolute Neutrophils Absolute Lymphocytes Absolute Monocytes Absolute Eosinophils Absolute Basophils Carbonic Acid HCO3/H2CO3 Ratio ABG pH ABG pCO2 ABG pO2 ABG HCO3 ABG Total CO2 ABG O2 Saturation ABG Base Excess FiO2 Sodium 133.2 L 133.7 L Potassium 3.3 L 3.4 L Chloride 99 98 Carbon Dioxide 24 25 Anion Gap 10 11 BUN 14 9 Creatinine 0.78 0.66 Est GFR ( Amer) > 60 > 60 Est GFR (Non-Af Amer) > 60 > 60 Glucose 100 112 H POC Glucose Calcium 8.5 9.0 Magnesium 1.3 L Total Bilirubin Direct Bilirubin Indirect Bilirubin Neonat Total Bilirubin AST ALT Alkaline Phosphatase Creatine Kinase CK-MB (CK-2) Troponin I Total Protein Albumin Urine Color Urine Appearance Urine pH Ur Specific [place] Urine Protein Urine Glucose (UA) Urine Ketones Urine Blood Urine Nitrite Urine Bilirubin Urine Urobilinogen Ur Leukocyte Esterase Urine WBC (Auto) Urine RBC (Auto) Urine Mucus (Auto) Urine Ascorbic Acid Urine Opiates Screen Urine Methadone Screen Ur Barbiturates Screen Ur Phencyclidine Scrn Ur Amphetamines Screen U Benzodiazepines Scrn Urine Cocaine Screen U Marijuana (THC) Screen EKG Comments: [SR] . SINUS RHYTHM [IMI3] . BORDERLINE INFERIOR Q WAVES [LQTB] . BORDERLINE PROLONGED QT INTERVAL [id number] [place] 22-Jun-2016 09:39:12 : 1950 65 Years Female Race: White Dept: ED Room: ED19 Oper: [id number] HR 86 OR 192 QRSD 98 QT 416 QTc 498 -- AXIS -- P 70 QRS 74 T 53 Requested By: LEIDA GALINDO Order #: [id number] Account Impressions: Head MRI 06/22/16 00:00 IMPRESSION: MINIMAL MICROVASCULAR ISCHEMIC CHANGE. OTHERWISE NORMAL STUDY. Head CT 06/22/16 08:52 IMPRESSION: Very limited negative study Chest X-Ray 06/22/16 08:54 IMPRESSION: There are mild chronic lung changes with no acute cardiopulmonary disease. Plan Discharge Plan: Patient was discharged with family She's to return to [place] where she will follow-up with primary care physician Time Spent: Greater than 30 Minutes
== END 2016-06-25 12:07 | disposition home or self-care (01) | DRG 640 ==
LOC: ER 08:50 → UNDOADMIN 13:26 → EH 13:26 → 5 15:14 → EH 06-23 10:53
DX: E87.1 Hypo-osmolality and hyponatremia (principal); G93.40 Encephalopathy, unspecified; K22.70 Barrett's esophagus without dysplasia; R13.10 Dysphagia, unspecified; K20.9 Esophagitis, unspecified; E87.6 Hypokalemia; E83.42 Hypomagnesemia; R41.82 Altered mental status, unspecified; I10 Essential (primary) hypertension; E78.5 Hyperlipidemia, unspecified; J42 Unspecified chronic bronchitis; F17.210 Nicotine dependence, cigarettes, uncomplicated; M54.9 Dorsalgia, unspecified; Z88.0 Allergy status to penicillin; Z88.2 Allergy status to sulfonamides
CPT/HCPCS: 36415; 70450; 70551; 71010; 80048; 80053; 80307; 81001; 82550; 82553; 82803; 82962; 83735; 84484; 85025; 85027; 87040; 93005; 93010; 94640; 96360; 99285; G0378; J2060; J2270; J3475; J3490; J7030; J7620; S0164